=== PATIENT | male | born 1985 | race African-American/Black ===

== ENCOUNTER 2024-09-16 10:54 | Inpatient (IN) | payer OTHER ==
[2024-09-16 12:21] VITALS: RESP 16
[2024-09-16] MEDS ORDERED: ONDANSETRON *ODT* 4 MG TABLET SL PRN (12:57)
[2024-09-16] MEDS ORDERED: METHOCARBAMOL 500 MG TABLET PO PRN (12:57)
[2024-09-16] MEDS ORDERED: MAG HYDROX/AL HYDROX/SIMETH 30 ML UNIT-DOSE CUP PO PRN (12:57)
[2024-09-16] MEDS ORDERED: guaiFENesin 600 MG TABLET.ER (FP) PO PRN (12:57)
[2024-09-16] MEDS ORDERED: BISMUTH SUBSALICYLATE 524 MG/30 ML PO PRN (12:57)
[2024-09-16] MEDS ORDERED: NALOXONE (NARCAN) HCL 4 MG/0.1 ML SPRAY NS PRN (12:57)
[2024-09-16] MEDS ORDERED: BENZONATATE 200 MG CAPSULE PO PRN (12:57)
[2024-09-16] MEDS ORDERED: IBUPROFEN 400 MG TABLET (FP) PO PRN (12:57)
[2024-09-16] MEDS ORDERED: ACETAMINOPHEN 325 MG TABLET (FP) PO PRN (12:57)
[2024-09-16] MEDS ORDERED: NICOTINE POLACRILEX 2 MG GUM BUC PRN (12:57)
[2024-09-16] MEDS ORDERED: MAGNESIUM HYDROX 2400MG/30ML ORAL SUSPENSION 30 ML CUP PO PRN (12:57)
[2024-09-16] MEDS ORDERED: LOPERAMIDE HCL 2 MG CAPSULE PO PRN (12:57)
[2024-09-16] MEDS ORDERED: BENZOCAINE/MENTHOL (CHLORASEPTIC ) LOZENGE MM PRN (12:57)
[2024-09-16] MEDS ORDERED: DICYCLOMINE HCL 10 MG CAPSULE PO PRN (12:57)
[2024-09-16] MEDS ORDERED: IBUPROFEN 600 MG TABLET (FP) PO PRN (12:57)
[2024-09-16] MEDS ORDERED: POLYETHYLENE GLYCOL (HEALTHYLAX) 3350 17 GM PACKET PO PRN (12:57)
[2024-09-16] MEDS ORDERED: hydrOXYzine PAMOATE 25 MG CAPSULE (FP) PO PRN (12:57)
[2024-09-16 13:08] VITALS: BMI 17.3
[2024-09-16] MEDS ORDERED: MINERAL OIL/PETROLAT/WATER TOPICAL CREAM 454 GM JAR TP PRN (13:43)
[2024-09-16] MEDS ORDERED: HYDROCORTISONE 1% TOPICAL OINT 30 GM TUBE TP PRN (13:43)
[2024-09-16] MEDS ORDERED: MINERAL OIL/PETROLAT/WATER TOPICAL CREAM 113 GM JAR TP PRN (14:45)
[2024-09-16] MEDS: THIAMINE 100 MG TABLET PO SCH (22:31)
[2024-09-16] MEDS: MELATONIN 5 MG TABLETS PO SCH (22:31)
[2024-09-17 08:52] VITALS: BP 129/85; PULSE 64; TEMP 98
[2024-09-17] MEDS: PRENATAL VITAMINS W/ FOLIC ACID TABLET (FP) PO SCH (10:49)
[2024-09-17 11:37] LABS: HEMOGLOBIN 11.5 g/dL (13.7-17.5); MCHC 31.9 g/dl (32.3-36.5); MEAN CELL VOLUME 88.5 fl (79.0-92.2); MEAN PLT VOLUME 11.3 fl (9.4-12.4); PLATELET COUNT 184 x10^3/uL (163-337); RDW 13.3 % (12.1-15.9)
[2024-09-17 11:39] LABS: POTASSIUM 3.8 mmol/L (3.5-5.1)
[2024-09-17 11:43] LABS: ALBUMIN 4.2 g/dl (3.4-5.0); BLOOD UREA NITROGEN 9.1 mg/dL (7-18); CALCIUM 9.5 mg/dL (8.5-10.1)
[2024-09-17 11:46] LABS: CREATININE 0.5 mg/dL (0.55-1.3)
[2024-09-17 11:48] LABS: BILIRUBIN,TOTAL 0.6 mg/dL (0.2-1); TOT PROT 8.2 g/dl (6.4-8.2)
== END 2024-09-17 10:20 | disposition home or self-care (01) | DRG 775 ==
LOC: YASAS 10:54 → Y6N 13:56
PROVIDERS: ADMIT Allergy & Immunology; ATTEND Allergy & Immunology
PROC: HZ2ZZZZ Detoxification Services for Substance Abuse Treatment (ICD-10-PCS; principal; 2024-09-16)
DX: F10.20 Alcohol dependence, uncomplicated (principal); F17.210 Nicotine dependence, cigarettes, uncomplicated; F20.9 Schizophrenia, unspecified; J45.909 Unspecified asthma, uncomplicated
CPT/HCPCS: 36415; 80053; 80305; 80307; 85027; 86780; 93005; 93010